=== PATIENT | female | born 1965 ===

== ENCOUNTER → 2022-12-30 | Outpatient (CLI) | payer MEDICARE ==
[2023-01-01 18:06] LABS: HPV 16 Negative (Negative); HPV 18 Negative (Negative); HPV OTHER HR TYPES Negative (Negative)
== END ==
LOC: LAB 16:03 → LAB SHORT 16:03
PROVIDERS: Family Medicine
DX: Z12.4 Encounter for screening for malignant neoplasm of cervix (principal)
CPT/HCPCS: 87624; G0145

== ENCOUNTER → 2024-11-04 | Outpatient (CLI) | payer MEDICARE | END | disposition home or self-care (01) | LOC: LAB SHORT 17:30 → LAB 17:30 | DX: R06.02 Shortness of breath (principal) | CPT/HCPCS: 83880 ==